=== PATIENT | female | born 1990 | race Caucasian/White ===

== ENCOUNTER 2018-05-16 05:58 | Inpatient (IN) ==
[2018-05-16] MEDS ORDERED: Naloxone 0.4 MG/ML INJ IVP PRN ×3 (06:16→11:36)
[2018-05-16] MEDS ORDERED: Metoclopramide 10 MG/2 ML VIAL IVP PRN (06:16)
[2018-05-16] MEDS ORDERED: CeFAZolin Premix DUPLEX 2,000 MG/50 ML BAG IVPB ONE (06:16)
[2018-05-16] MEDS ORDERED: Famotidine 20 MG/2 ML VIAL IVP PRN (06:16)
[2018-05-16] MEDS ORDERED: Ringers Solution, Lactated 1,000 ML IVC SCH (06:30)
[2018-05-16 06:34] LABS: Basophils % 0.2 %; Eosinophils % 0.1 %; Hemoglobin 13.5 g/dL (11.5-15.4); Immature Granulocytes % 0.6 % (0-4); Immature Platelets 3.4 % (1.1-6.1); Lymphocytes # 0.9 K/mcL (0.6-4.6); Lymphocytes % 11.7 %; Mean Corpuscular HGB Conc 33.8 g/dL (31.6-35.5); Mean Corpuscular Hemoglobin 32.4 pg (28.0-33.3); Mean Corpuscular Volume 95.9 fL (83.0-100.0); Mean Platelet Volume 10.6 fL (9.4-12.4); Monocytes # 0.4 K/mcL (0.0-1.3); Monocytes % 4.6 %; Neutrophils # 6.6 K/mcL (1.6-8.9); Platelet Count 188 K/mcL (140-400); Red Blood Count 4.17 M/mcL (3.82-4.97); Red Cell Distribution Width 14.1 % (11.5-14.5); Segmented Neutrophils % 82.8 %
[2018-05-16 06:38] LABS: Amphetamine Screen,Urine Negative ng/mL (Cutoff=1000); Barbiturate Screen,Urine Negative ng/mL (Cutoff=200)
[2018-05-16 06:40] LABS: Benzodiazepines Screen,Urine Negative ng/mL (Cutoff=300); Cannabinoid Screen,Urine Negative ng/mL (Cutoff = 50); Cocaine Screen,Urine Negative ng/mL (Cutoff= 300); Opiate Screen,Urine Negative ng/mL (Cutoff=300); Phencyclidine Screen,Urine Negative ng/mL (Cutoff=25)
[2018-05-16] MEDS ORDERED: EPHEDrine 50 MG/ML VIAL ONE (07:16)
[2018-05-16] MEDS ORDERED: *HR* FentaNYL (PF) 100 MCG/2 ML VIAL ONE (07:16)
[2018-05-16] MEDS ORDERED: *HR* Morphine Sulfate/PF 10 MG/10 ML AMPUL ONE (07:16)
[2018-05-16] MEDS ORDERED: Ondansetron 4 MG/2 ML VIAL ONE ×2 (07:17→08:48)
[2018-05-16] MEDS ORDERED: *HR* Phenylephrine 10 MG/ML VIAL ONE (07:17)
[2018-05-16] MEDS ORDERED: *HR* Oxytocin 10 UNIT/ML VIAL IM ONE (07:17)
[2018-05-16] MEDS ORDERED: Lidocaine -MPF 1% 5 ML AMPUL ONE (07:17)
--- NOTE | 2018-05-16 07:36 | History & Physical Report ---
Date of Encounter: 05/16/18 Time of Encounter: 07:35 24 Hour HP Update - Instructions Instructions: If the History and Physical is less than 30 days old and was completed prior to A.M. admission and or procedure and has NOT been updated on calendar day of procedure please complete this update prior to performing procedure. - Update Patient reports changes in Medical Condition: No Changes in examination, assessment, or condition: No Changes in Medication: No Preop tests/diagnostics Reviewed: Yes Surgery Remains Indicated: Yes Consent for Planned Operative Procedure(s) Verified: Yes - Pre-Operative Checklist Preoperative Checklist Indicated: Yes Prophylactic Antibiotic Ordered: Yes Home Medications Include Beta Marichuy: No Is VTE Prophylaxis Indicated?: Yes
--- NOTE | 2018-05-16 07:54 | Anesthesia Evaluation PreOp ---
Date of Encounter: 05/16/18 Time of Encounter: 07:52 - Past History Planned Operation: Repeat Cardiac History: Denies any Significant Hx Pulmonary History: Denies Any Significant HX DEHYDROGENATION OPERATOR History: Denies Any Significant HX Other Medical History: Thyroid (Hypothyroidism) Anesthesia History: No Prior Anesthetic Complications, Past Anesthesia (D&C, C- section) Alcohol Use: none Drug use: none Medications and Allergies Allergy/AdvReac Type Severity Reaction Status Date / Time No Known Allergies Allergy Verified 05/16/18 07:33 - Meds/Allergy Pre-op Review Medications Reviewed: Yes Allergies Reviewed: Yes Beta Blockers on Current Med List: No Anesthesia Results - Labs 05/16/18 06:17 Anesthesia Exam Intake and Output 05/15/18 05/15/18 05/16/18 15:59 23:59 07:59 Other: Weight 70.1 kg Patient Weight 05/16/18 23:59 Weight 70.1 kg O2 Sat Height: 5'4" Weight: 154# BMI = 26.5 NPO (# of Hours): MNOc - HEENT Pupil (Motor): Pupils equal, EOMI Mallampati: II Teeth: Normal Oral Opening: Greater than 3 - DEHYDROGENATION OPERATOR LOC: Oriented DEHYDROGENATION OPERATOR Motor: Normal RUE, Normal LUE, Normal RLE, Normal LLE, Normal Face DEHYDROGENATION OPERATOR Sensory: Normal: RUE, LUE, RLE, LLE, Face - Cardiac Rhythm: Regular Murmur: None - Pulmonary Breath Sounds: bilateral Clear Respiratory Effort: Symmetrical Anesthesia Assess/Plan ASA Score: 2 Level of consciousness: Cooperative Anesthetic Plan: Spinal Monitoring Plan: Standard Monitors Recovery Plan: PACU Anes Supervising Prov Stmt: Pt seen/evaluated, r&B discussed, questions answered and consent obtained. Jordin Felipe MD
[2018-05-16] MEDS ORDERED: Ondansetron 4 MG/2 ML VIAL IVP PRN ×2 (07:55→11:36)
[2018-05-16] MEDS ORDERED: *HR* HYDROmorphone (PF) 1 MG/ML SYRINGE IVP PRN ×2 (07:55→11:36)
[2018-05-16] MEDS ORDERED: *HR* OxyCODONE/APAP 5/325 TABLET PO PRN (07:55)
[2018-05-16] MEDS ORDERED: Ibuprofen 400 MG TABLET PO PRN (07:55)
[2018-05-16] MEDS ORDERED: *HR* Morphine 2 MG/ML SYRINGE IVP PRN ×2 (07:55→11:36)
[2018-05-16] MEDS ORDERED: Acetaminophen IV 1,000 MG/100 ML INFUS..BTL IVPB ONE (07:59)
--- NOTE | 2018-05-16 08:15 | Anesthesia Procedures ---
Addendum entered and electronically signed by Kiko Todd CRNA 05/16/18 08:15: Spinal time = [id number] Original Note: Date of Encounter: 05/16/18 Time of Encounter: 08:13 Procedures: Anesthesia - Epidural/Spinal Patient ID/Chart reviewed: Yes Patient examined: Yes OB Eval: Gestational age: 39.3 OB Eval: : 3 OB Eval: Hx Para: 1 OB Eval: Contractions: Non-stressed pattern Consent Obtained: Yes Supplemental Oxygen: Nasal Cannula Supplemental Oxygen Rate (L/min): 2 Site Prep: Aseptic Technique, Sterile prep and drape, Povidone-Iodine 1% Patient position: upright Local Anesthetic: Lidocaine 1% Amount of Local Anesthetic used: 3 Interspace Used: L4-L5 Blood: No CSF: Yes Paresthesia: No Spinal Needle Gauge: 24 (sprotte) Spinal Dose: 2ml 0.5%bupivacaine 15mcg fentanyl 0.2mg duramorph Procedure: pt tolerated procedure well. no complications. vss. fhr stable. see anes for full vitals.
--- NOTE | 2018-05-16 09:21 | OB/GYN Procedure Note ---
Section - Date of procedure: 05/16/18 Preop diagnosis: desires repeat Post-op diagnosis: same Procedure: repeat low transverse Surgeon: Bridger Tan Was there an assistant customer service manager present: No Anesthesiologist: Anyi Acosta Anesthesia Type: Spinal section complications: none Disposition: L&D Recovery Room Specimens: Placenta - (s) A Infant Delivery Date: 05/16/18 Infant Delivery Time: 08:29 Presentation: vertex Position: unknown Route of delivery: other Gender: Female Viability: Viable Pounds: 7 Ounces: 4 Gram Weight: 3295 kg at 1 minute: 8 at 5 minutes: 9 Placenta: complete extraction Cord: 3 umbilical vessels - Narrative Narrative: Patient was taken to the operating room and placed in supine position with left uterine displacement following the administration of spinal anesthetic. Skin was then prepped and draped in usual sterile fashion, and a timeout procedure was performed. A Pfannenstiel incision was performed through the previous surgical scar, and extended down to the fascial layer until the abdominal cavity was entered. A bladder flap was then gently created with sharp dissection. A low transverse uterine incision was performed and extended bilaterally with bandage scissors. The membranes were then ruptured with clear fluid present. A viable female infant was delivered from a vertex presentation with scores of 8 and 9 at 1 and 5 minutes respectively and the infant weighed 7 pounds and 4 ounces. The cord was clamped and cut, and the infant was handed to the nursery team. A sample of cord blood was obtained and the placenta was manually removed. The uterine cavity was wiped clean with wet lap sponge. The uterine incision was closed in a layered fashion with 0 Vicryl suture in a running locking fashion. Good hemostasis was noted. The Paracolic gutters were then gently wiped clean with wet lap sponge. Inspection was then performed with good hemostasis still noted, with slight oozing from the serosal surface; Daren was applied. The fascial layer was closed with 0 PDS Stratafix suture in a running nonlocking fashion. The subcutaneous layer was irrigated with sterile water and then closed with 4-0 Vicryl suture in a running nonlocking fashion, and continuing to close the skin in a running subcuticular fashion. A piece of Dermabond mesh was then applied over the incision site. Patient tolerated procedure well, all sponge needle and instrument counts reported as correct. Estimated blood loss was 5o0 mL. The urine in the Gomez catheter was clear and yellow, and she was taken to recovery room in stable condition.
[2018-05-16] MEDS ORDERED: Oxytocin 20 units/ LR 1000 mL 20 UNIT/1,000 ML BAG IVC ONE (11:03)
--- NOTE | 2018-05-16 11:21 | Anesthesia Evaluation Post Op ---
Date of Encounter: 05/16/18 Time of Encounter: 11:21 - Lungs Lungs: Clear Ascult./Percussion - Airway Airway: Non-obstructed - Cardiovascular Regular Rate, Baseline Rhythm - Mental Status Mental Status: Alert & Oriented, Answers Appropriately - Pain Pain Scale: 3 Pain Scale used: Numeric (1 - 10) - Nausea Vomiting Nausea Vomiting: Not Present - Hydration Hydration: NPO, Gomze catheter - Discharge PostOp Status: Transfer Patient to floor
[2018-05-16] MEDS ORDERED: Oxytocin 20 units/ LR 1000 mL 20 UNIT/1,000 ML BAG IVC SCH (11:36)
[2018-05-16] MEDS ORDERED: Simethicone 80 MG TAB.CHEW PO PRN (11:36)
[2018-05-16] MEDS: Ibuprofen 400 MG TABLET PO PRN ×2 (17:58→23:45)
[2018-05-17] MEDS: Ibuprofen 400 MG TABLET PO PRN (06:28)
[2018-05-17 08:06] LABS: Basophils % 0.2 %; Eosinophils % 0.1 %; Hematocrit 26.7 % (35.3-44.9); Immature Granulocytes % 0.4 % (0-4); Lymphocytes % 11.3 %; Mean Corpuscular HGB Conc 33.3 g/dL (31.6-35.5); Mean Corpuscular Hemoglobin 32.1 pg (28.0-33.3); Mean Corpuscular Volume 96.4 fL (83.0-100.0); Mean Platelet Volume 10.5 fL (9.4-12.4); Monocytes # 0.4 K/mcL (0.0-1.3); Monocytes % 4.1 %; Neutrophils # 7.1 K/mcL (1.6-8.9); Platelet Count 164 K/mcL (140-400); Red Blood Count 2.77 M/mcL (3.82-4.97); Red Cell Distribution Width 14.6 % (11.5-14.5); Segmented Neutrophils % 83.9 %
[2018-05-17] MEDS: *HR* OxyCODONE/APAP 5/325 TABLET PO PRN ×2 (08:17→12:45)
[2018-05-17 08:25] LABS: Hemoglobin 8.9 g/dL (11.5-15.4)
[2018-05-17 08:39] VITALS: BP 110/65
[2018-05-17] MEDS ORDERED: Prenatal Vit/FA 1 EACH TABLET PO SCH (09:00)
--- NOTE | 2018-05-17 09:31 | Discharge Summary ---
Date of Encounter: 05/17/18 Time of Encounter: 09:28 - Discharge Diagnosis (1) Status post delivery Priority: Primary Status: Acute Comments: Pt meeting all milestones. She reports pain well controlled, voiding normally, tolerating regular diet, ambulating normally, and passing flatus. Mood is good. Pt desires discharge home today. (2) Mother currently breast-feeding Priority: Secondary Status: Acute (3) anemia Priority: Secondary Status: Acute - Discharge Medications Prescriptions: OxyCODONE/APAP 5/325 [Percocet 5/325 MG] 1 each PO Q6HR PRN 7 Days #28 tablet PRN Reason: POST-C/S Moderate Pain Docusate [Colace] 100 mg PO BID #60 capsule Ferrous Sulfate 325 mg PO DAILY@0800 #30 tablet Home Medications: Acetaminophen [Tylenol] 500 mg PO Q6HR PRN tablet 05/17/18 [Rx] Docusate [Colace] 100 mg PO BID #60 capsule 05/17/18 [Rx] Ferrous Sulfate 325 mg PO DAILY@0800 #30 tablet 05/17/18 [Rx] OxyCODONE/APAP 5/325 [Percocet 5/325 MG] 1 each PO Q6HR PRN 7 Days #28 tablet 05/17/18 [Rx] Simethicone [Gas-X] 80 mg PO TID PRN tab.chew 05/17/18 [Rx] Allergies/Adverse Reactions: Allergy/AdvReac Type Severity Reaction Status Date / Time No Known Allergies Allergy Verified 05/16/18 07:33 Data Procedures and tests throughout hospitalization: Laboratory Tests 05/16/18 05/16/18 05/16/18 06:17 06:17 07:52 WBC 8.0 RBC 4.17 Hgb 13.5 Hct 40.0 MCV 95.9 MCH 32.4 MCHC 33.8 RDW 14.1 Plt Count 188 MPV 10.6 Immature Gran % 0.6 Seg Neutrophils % 82.8 Lymphocytes % 11.7 Monocytes % 4.6 Eosinophils % 0.1 Basophils % 0.2 Neutrophils # 6.6 Lymphocytes # 0.9 Monocytes # 0.4 Eosinophils # 0.0 Basophils # 0.0 Immature Plt Fraction 3.4 Urine Opiates Screen Negative Ur Barbiturates Screen Negative Ur Phencyclidine Scrn Negative Ur Amphetamines Screen Negative U Benzodiazepines Scrn Negative Urine Cocaine Screen Negative U Marijuana (THC) Screen Negative Ur Drug Screen Interp See Below Hep Bs Antigen Nonreactive 05/17/18 07:42 WBC 8.4 RBC 2.77 L Hgb 8.9 L D Hct 26.7 L MCV 96.4 MCH 32.1 MCHC 33.3 RDW 14.6 H Plt Count 164 MPV 10.5 Immature Gran % 0.4 Seg Neutrophils % 83.9 Lymphocytes % 11.3 Monocytes % 4.1 Eosinophils % 0.1 Basophils % 0.2 Neutrophils # 7.1 Lymphocytes # 1.0 Monocytes # 0.4 Eosinophils # 0.0 Basophils # 0.0 Immature Plt Fraction Urine Opiates Screen Ur Barbiturates Screen Ur Phencyclidine Scrn Ur Amphetamines Screen U Benzodiazepines Scrn Urine Cocaine Screen U Marijuana (THC) Screen Ur Drug Screen Interp Hep Bs Antigen Labs on day of discharge: Labs from last 24 hours 05/17/18 05/16/18 07:42 07:52 WBC 8.4 RBC 2.77 L Hgb 8.9 L D Hct 26.7 L MCV 96.4 MCH 32.1 MCHC 33.3 RDW 14.6 H Plt Count 164 MPV 10.5 Immature Gran % 0.4 Seg Neutrophils % 83.9 Lymphocytes % 11.3 Monocytes % 4.1 Eosinophils % 0.1 Basophils % 0.2 Neutrophils # 7.1 Lymphocytes # 1.0 Monocytes # 0.4 Eosinophils # 0.0 Basophils # 0.0 Hep Bs Antigen Nonreactive Date of admission: 05/16/18 05:58 Primary care physician: Jacquelyn Taylor CNP Discharging clinician: Haylie Retana Anticipated date of discharge: 05/17/18 - Patient Status Disposition: Home, Self-Care Condition: Good Functional capacity at discharge: independent ambulation Overall status at discharge: patient is progressing back to baseline - Discharge Instructions Follow Up With: Jacquelyn Taylor CNP [Primary Care Provider] - Bridger Tan DO [Partnered Physician] - - Diet and Activity Activity: increase activity as tolerated Diet: regular diet Hospital Course Reason for admission: section Delivery: section Episiotomy: none Laceration: none Other procedures: none complications: none Discharge diagnosis: IUP at term delivered [place] baby: female Hospital course: - Date of procedure: 01/15/19 Preop diagnosis: desires repeat Post-op diagnosis: same Procedure: repeat low transverse Surgeon: Bridger Tan Was there an retirement assistant present: No Anesthesiologist: Anyi Acosta Anesthesia Type: Spinal section complications: none Disposition: L&D Recovery Room Specimens: Placenta - Infant (s) A Infant Delivery Date: 05/16/18 Delivery Time: 08:29 Presentation: vertex Position: unknown Route of delivery: other Gender: Female Viability: Viable Pounds: 7 Ounces: 4 Gram Weight: 3295 kg at 1 minute: 8 at 5 minutes: 9 Placenta: complete extraction Cord: 3 umbilical vessels Time Attestation: Total time spent providing and/or coordinating discharge services: Time Spent: Less than 30 minutes - VTE Documentation of Mechanical Device: Intermittent pneumatic compression device Exam - Constitutional Vitals: Temp Pulse Resp BP Pulse Ox 98.1 F 86 16 110/65 98 05/17/18 07:30 05/17/18 07:30 05/17/18 07:30 05/17/18 07:30 05/17/18 04:15 General appearance IM: A&O X 3 - Respiratory Respiratory exam: Present: CTAB - Cardiovascular Cardiovascular exam IM: Present: RRR - GI/Abdominal GI/Abdominal exam IM: soft, no peritoneal signs Incision: intact Additional comments: intact with dermabond, no s/sx infection - Uterine Tone: Firm Uterus Position: 1 Finger Below Umbilicus - Extremities Exam Extremities exam IM: Present: normal inspection - Neurological Exam Neurological exam: normal gait, oriented X3 - Other Additional findings: Oarrs reviewed
== END 2018-05-17 15:05 | disposition home or self-care (01) | DRG 788 ==
LOC: 1NENULAB 05:58 → 1NENUOBS 11:34